=== PATIENT | female | born 1950 | race Two or more races ===

== ENCOUNTER 2017-09-24 10:13 | Observation (INO) | payer MEDICARE, MEDICAID ==
[~2017-09-24] VITALS: Ht 160 cm; Wt 63.6 kg
[2017-09-24] MEDS ORDERED: NITRO PO (10:56)
[2017-09-24 11:03] VITALS: BP 155/93
[2017-09-24] MEDS ORDERED: LOSARTAN PO (11:03)
[2017-09-24] MEDS ORDERED: HYDR-3307 PO (11:03)
[2017-09-24] MEDS ORDERED: TIZA4CAP PO (11:03)
[2017-09-24] MEDS ORDERED: ASPI-496 PO (11:03)
[2017-09-24] MEDS ORDERED: SIMV40TA3 PO (11:03)
[2017-09-24] MEDS ORDERED: PROP20TA PO (11:03)
[2017-09-24] MEDS ORDERED: [UNRECOGNIZED DRUG - MIXTURE] PO (11:03)
[2017-09-24] MEDS ORDERED: AMOX-291 PO (11:14)
[2017-09-24 11:19] LABS: BASOPHILS # (AUTO) 0.03 x10^3/uL (0-0.1); BASOPHILS % (AUTO) 1 % (0-1); EOSINOPHILS # (AUTO) 0.09 x10^3/uL (0-0.4); EOSINOPHILS % (AUTO) 2 % (1-7); LYMPHOCYTES # (AUTO) 1.17 x10^3/uL (1-3.4); LYMPHOCYTES % (AUTO) 19 % (22-44); MD NO; MEAN CORPUSCULAR HEMOGLOBIN 30.4 pg (27.0-34.8); MEAN CORPUSCULAR HGB CONC 33.5 g/dL (32.4-35.8); MEAN CORPUSCULAR VOLUME 90.7 fL (80-100); MEAN PLATELET VOLUME 7.9 fL (7.4-10.4); MONOCYTES # (AUTO) 0.37 x10^3/uL (0.2-0.8); MONOCYTES % (AUTO) 6 % (2-9); NEUTROPHILS # (AUTO) 4.38 x10^3/uL (1.8-6.8); NEUTROPHILS % (AUTO) 73 % (42-75); PLATELET COUNT 197 x10^3/uL (130-400); RED BLOOD COUNT 4.38 x10^6/uL (3.82-5.3); RED CELL DISTRIBUTION WIDTH 14.6 % (9.6-15.2)
[2017-09-24 11:27] LABS: ANION GAP 7 mmol/L (5-15); CALCIUM 9.1 mg/dL (8.5-10.1); CHLORIDE 109 mmol/L (98-107); CREATININE 1.13 mg/dL (0.55-1.02)
[2017-09-24 11:36] LABS: INTERNATIONAL NORMALIZED RATIO 1.01 (0.93-1.1); PROTHROMBIN TIME 10.5 Seconds (9.6-11.5)
[2017-09-24] MEDS ORDERED: VISIPAQUE 270 MG/ML, 150ML BOTTLE ONE ×2 (12:00→13:53)
[2017-09-24] MEDS ORDERED: LIDOCAINE 2%, 20ML ONE (12:37)
[2017-09-24] MEDS ORDERED: MIDAZOLAM 1 MG/ML, 5ML ONE (12:50)
[2017-09-24] MEDS ORDERED: FENTANYL PF 100 MCG/2ML ONE (12:50)
[2017-09-24] MEDS ORDERED: NALOXONE 1 MG/ML, 2ML ONE (12:50)
[2017-09-24] MEDS ORDERED: NITROGLYCERIN 5 MG/ML, 10ML ONE (12:50)
[2017-09-24] MEDS ORDERED: FLUMAZENIL 0.1 MG/1 ML, 5ML ONE (12:50)
[2017-09-24] MEDS ORDERED: HEPARIN 1,000 UNITS/ML, 10ML ONE (12:50)
[2017-09-24] MEDS ORDERED: hydrALAzine 20 MG/ML, 1ML ONE (13:07)
[2017-09-24] MEDS ORDERED: DIPHENHYDRAMINE 50 MG/ML, 1ML ONE (13:47)
[2017-09-24] MEDS ORDERED: CLOPIDOGREL 300 MG TABLET ONE (14:29)
[2017-09-24] MEDS ORDERED: ONDANSETRON 2MG/ML, 2ML IVPush PRN (15:30)
[2017-09-24] MEDS ORDERED: ACETAMINOPHEN 325 MG TABLET PO PRN (15:30)
[2017-09-24] MEDS: HYDROcodone/APAP 5/325 TABLET PO PRN ×3 (16:00→23:58)
[2017-09-24 17:37] VITALS: BP 170/87
[2017-09-24] MEDS: hydrALAzine 20 MG/ML, 1ML IV PRN (17:37)
[2017-09-24 18:07] VITALS: BP 137/73
[2017-09-24] MEDS: PROPRANOLOL 20 MG TABLET PO SCH ×2 (18:25→22:00)
[2017-09-24] MEDS: SODIUM CHLORIDE 0.9% 1,000 ML IV SCH (18:26)
[2017-09-24 19:35] VITALS: BP 155/71
[2017-09-24] MEDS: morphine SULFATE 10 MG/ML, 1ML IVPush PRN (20:39)
[2017-09-24] MEDS ORDERED: ATORVASTATIN 40 MG TABLET PO SCH (21:00)
[2017-09-24] MEDS ORDERED: PROPRANOLOL 20 MG TABLET PO SCH (22:00)
[2017-09-25 00:01] VITALS: BP 161/73
[2017-09-25] MEDS: hydrALAzine 20 MG/ML, 1ML IV PRN (00:04)
[2017-09-25] MEDS: SODIUM CHLORIDE 0.9% 1,000 ML IV SCH (01:30)
[2017-09-25] MEDS: morphine SULFATE 10 MG/ML, 1ML IVPush PRN (01:54)
[2017-09-25] MEDS: HYDROcodone/APAP 5/325 TABLET PO PRN ×2 (04:01→08:56)
[2017-09-25 04:03] VITALS: BP 139/70
[2017-09-25 04:50] LABS: ANION GAP 8 mmol/L (5-15); CHLORIDE 109 mmol/L (98-107); CREATININE 0.86 mg/dL (0.55-1.02)
[2017-09-25 04:53] LABS: BASOPHILS # (AUTO) 0.03 x10^3/uL (0-0.1); BASOPHILS % (AUTO) 0 % (0-1); EOSINOPHILS # (AUTO) 0.07 x10^3/uL (0-0.4); EOSINOPHILS % (AUTO) 1 % (1-7); LYMPHOCYTES # (AUTO) 1.26 x10^3/uL (1-3.4); LYMPHOCYTES % (AUTO) 17 % (22-44); MD NO; MEAN CORPUSCULAR HEMOGLOBIN 30.1 pg (27.0-34.8); MEAN CORPUSCULAR HGB CONC 32.9 g/dL (32.4-35.8); MEAN CORPUSCULAR VOLUME 91.4 fL (80-100); MEAN PLATELET VOLUME 7.9 fL (7.4-10.4); MONOCYTES % (AUTO) 8 % (2-9); NEUTROPHILS % (AUTO) 74 % (42-75); PLATELET COUNT 178 x10^3/uL (130-400); RED BLOOD COUNT 3.95 x10^6/uL (3.82-5.3); RED CELL DISTRIBUTION WIDTH 14.5 % (9.6-15.2)
[2017-09-25] MEDS: PROPRANOLOL 20 MG TABLET PO SCH (05:46)
[2017-09-25] MEDS ORDERED: ASPIRIN 81 MG TABLET EC PO SCH (06:00)
[2017-09-25 07:56] VITALS: BP 173/83
[2017-09-25] MEDS ORDERED: CLOPIDOGREL 75 MG TABLET PO SCH (09:00)
[2017-09-25] MEDS ORDERED: LOSARTAN 50MG TABLET PO SCH (09:00)
[2017-09-25] MEDS ORDERED: CLOP75TA52 PO (09:23)
== END 2017-09-25 09:40 | disposition home or self-care (01) ==
LOC: OUT 10:13 → 4NOR 15:20 → OUT 18:42 → 4NOR 18:42 → DCLOUNGE 09-25 09:27
PROVIDERS: ADMIT Internal Medicine Interventional Cardiology; ATTEND Internal Medicine Interventional Cardiology
DX: I73.9 Peripheral vascular disease, unspecified (principal); B19.20 Unspecified viral hepatitis C without hepatic coma; E78.5 Hyperlipidemia, unspecified; I12.9 Hypertensive chronic kidney disease with stage 1 through stage 4 chronic kidney disease, or unspecified chronic kidney disease; I25.10 Atherosclerotic heart disease of native coronary artery without angina pectoris; I70.203 Unspecified atherosclerosis of native arteries of extremities, bilateral legs; I70.92 Chronic total occlusion of artery of the extremities; J44.9 Chronic obstructive pulmonary disease, unspecified; M19.90 Unspecified osteoarthritis, unspecified site; N18.9 Chronic kidney disease, unspecified; Z72.0 Tobacco use; Z86.718 Personal history of other venous thrombosis and embolism; F41.9 Anxiety disorder, unspecified
CPT/HCPCS: 36415; 37223; 75630; 80048; 85025; 85347; 85610; 96374; 96375; 96376; 99156; 99157; C1714; C1725; C1751; C1760; C1769; C1884; C1894; C2623; G0378; J0360; J1200; J1644; J2250; J2270; J2405; J3010; J3490; J7030; Q9966; J2310

== ENCOUNTER 2017-11-26 04:30 | Inpatient (IN) | payer MEDICARE, MEDICAID ==
[2017-11-25 15:04] LABS: BASOPHILS # (AUTO) 0.09 x10^3/uL (0-0.1); BASOPHILS % (AUTO) 2 % (0-1); EOSINOPHILS # (AUTO) 0.21 x10^3/uL (0-0.4); EOSINOPHILS % (AUTO) 4 % (1-7); LYMPHOCYTES # (AUTO) 1.79 x10^3/uL (1-3.4); LYMPHOCYTES % (AUTO) 30 % (22-44); MD NO; MEAN CORPUSCULAR HEMOGLOBIN 30.3 pg (27.0-34.8); MEAN CORPUSCULAR HGB CONC 33.1 g/dL (32.4-35.8); MEAN CORPUSCULAR VOLUME 91.7 fL (80-100); MEAN PLATELET VOLUME 7.7 fL (7.4-10.4); MONOCYTES # (AUTO) 0.48 x10^3/uL (0.2-0.8); MONOCYTES % (AUTO) 8 % (2-9); NEUTROPHILS # (AUTO) 3.49 x10^3/uL (1.8-6.8); NEUTROPHILS % (AUTO) 58 % (42-75); PLATELET COUNT 263 x10^3/uL (130-400); RED BLOOD COUNT 4.06 x10^6/uL (3.82-5.3); RED CELL DISTRIBUTION WIDTH 14.9 % (9.6-15.2)
[2017-11-25 15:12] LABS: MICROSCOPIC AUTO
[2017-11-25 15:15] LABS: ALBUMIN 4.1 g/dL (3.4-5.0); ANION GAP 5 mmol/L (5-15); CALCIUM 8.5 mg/dL (8.5-10.1); CHLORIDE 108 mmol/L (98-107)
[2017-11-25 15:19] LABS: ALANINE AMINOTRANSFERASE 49 U/L (12-78); ALKALINE PHOSPHATASE 91 U/L (45-117); BILIRUBIN,TOTAL 0.4 mg/dL (0.2-1.0); CREATININE 1.07 mg/dL (0.55-1.02); TOTAL PROTEIN 8.4 g/dL (6.4-8.2)
[2017-11-25 15:49] LABS: INTERNATIONAL NORMALIZED RATIO 0.93 (0.93-1.1); PROTHROMBIN TIME 9.7 Seconds (9.6-11.5)
[2017-11-25 16:11] LABS: HEMOGLOBIN A1C 5.6 % (4.2-6.3)
[~2017-11-26] VITALS: Ht 160 cm; Wt 63.8 kg
[~2017-11-26 04:30] MED LIST: ALBU18HF INH; AMOX-291 PO; ASPI-496 PO; ATOR40TA78 PO; CLOP75TA52 PO; DIPH25CA61 PO; HYDR-3307 PO; LOSA50TA6 PO; LOSARTAN PO; METO-93 PO; NITRO PO; PROP20TA PO; SIMV40TA3 PO; TIZA4CAP PO; TRIA1TAB5 PO; [UNRECOGNIZED DRUG - MIXTURE] PO
[2017-11-26] MEDS ORDERED: CHLORHEXIDINE 15 ML BOTTLE MM SCH (05:00)
[2017-11-26] MEDS ORDERED: ALBUMIN HUMAN 5% 500 ML IV PRN (05:00)
[2017-11-26] MEDS ORDERED: METOPROLOL TARTRATE 25 MG TABLET PO ONE (05:00)
[2017-11-26] MEDS ORDERED: INSULIN LISPRO 100 UNITS/ML, PEN SQ-INSULIN SCH (05:00)
[2017-11-26 05:59] VITALS: BP_SYST 109; BP_SYST 90; BP_DIAS 58; BP_DIAS 66
[2017-11-26] MEDS ORDERED: PAPAVERINE 30 MG/ML, 2ML ONE (06:30)
[2017-11-26] MEDS ORDERED: HEPARIN 1,000 UNITS/ML, 10ML ONE (06:30)
[2017-11-26] MEDS ORDERED: MIDAZOLAM 10MG/2 ML ONE (06:44)
[2017-11-26] MEDS ORDERED: POTASSIUM CHLORIDE 80 MEQ, SODIUM BICARBONATE 8.4% 10 MEQ, MAGNESIUM SULFATE 0.5 GM, LI... IV PRN (07:30)
[2017-11-26] MEDS ORDERED: VANCOMYCIN PMX 1GM/200ML 200 ML IV PRN (07:30)
[2017-11-26] MEDS ORDERED: CEFUROXIME 1.5 GM in SODIUM CHLORIDE 0.9% 50 ML IVPB PRN (07:30)
[2017-11-26] MEDS ORDERED: REGULAR INSULIN 62.5 UNITS in SODIUM CHLORIDE 0.9% 249.375 ML IV PRN ×2 (07:30→10:38)
[2017-11-26] MEDS ORDERED: DEXMEDETOMIDINE 200 MCG in SODIUM CHLORIDE 0.9% 48 ML IV SCH (07:30)
[2017-11-26] MEDS ORDERED: MANNITOL PMX 20% 500 ML IVPB PRN (07:30)
[2017-11-26] MEDS ORDERED: EPINEPHRINE 2 MG in SODIUM CHLORIDE 0.9% 248 ML IV SCH (07:30)
[2017-11-26] MEDS ORDERED: PHENYLEPHRINE 10 MG in SODIUM CHLORIDE 0.9% 249 ML IV PRN ×2 (07:30→10:38)
[2017-11-26] MEDS: SODIUM CHLORIDE FLUSH 10ML SYR IVF SCH ×3 (09:00→21:23)
[2017-11-26] MEDS ORDERED: MUPIROCIN OINT 2%, 22GM TP SCH (09:00)
[2017-11-26] MEDS ORDERED: PROTAMINE SULFATE 10 MG/ML, 25ML ONE (09:34)
[2017-11-26] MEDS ORDERED: PROPOFOL 10 MG/ML, 20ML ONE (09:34)
[2017-11-26] MEDS ORDERED: PHENYLEPHRINE 10 MG/ML ONE (09:34)
[2017-11-26] MEDS ORDERED: AMINOCAPROIC ACID 250 MG/ML, 20ML ONE ×2 (09:34)
[2017-11-26] MEDS ORDERED: EPINEPHRINE 1 MG/ML, 1ML ONE (09:34)
[2017-11-26] MEDS ORDERED: SUFentanil 50 MCG/ML, 5ML ONE (09:34)
[2017-11-26] MEDS ORDERED: ROCURONIUM 10 MG/ML,10ML ONE (09:34)
[2017-11-26] MEDS ORDERED: DEXMEDETOMIDINE 200 MCG in SODIUM CHLORIDE 0.9% 48 ML IV PRN (10:38)
[2017-11-26] MEDS ORDERED: NITROGLYCERIN/D5W PMX 240 ML IV PRN (10:38)
[2017-11-26] MEDS ORDERED: LIDOCAINE 2% 100MG/5ML SYRINGE ONE (10:59)
[2017-11-26] MEDS ORDERED: HEPARIN 1,000 UNITS/ML, 30ML ONE (10:59)
[2017-11-26] MEDS ORDERED: SODIUM BICARB 8.4%, 50ML SYRINGE ONE (10:59)
[2017-11-26] MEDS ORDERED: ALBUMIN HUMAN 25% 50 ML ONE (10:59)
[2017-11-26] MEDS ORDERED: DEXTROSE 4 GM TAB.CHEW PO PRN (11:00)
[2017-11-26] MEDS ORDERED: ACETAMINOPHEN 325 MG TABLET PO PRN (11:00)
[2017-11-26] MEDS ORDERED: BISACODYL 5 MG EC TABLET PO PRN (11:00)
[2017-11-26] MEDS ORDERED: SODIUM BICARB 8.4%, 50ML SYRINGE IV PRN (11:00)
[2017-11-26] MEDS ORDERED: DEXTROSE 50%, 50ML SYRINGE IVPush PRN (11:00)
[2017-11-26] MEDS ORDERED: MIDAZOLAM 1 MG/ML, 5ML IVPush PRN (11:00)
[2017-11-26] MEDS ORDERED: ACETAMINOPHEN 650 MG SUPP PR PRN (11:00)
[2017-11-26] MEDS ORDERED: GLUCAGON 1 MG IM PRN (11:00)
[2017-11-26] MEDS ORDERED: HYDROcodone/APAP 5/325 TABLET PO PRN (11:00)
[2017-11-26] MEDS ORDERED: PROCHLORPERAZINE 5 MG/ML, 2ML IVPush PRN (11:00)
[2017-11-26] MEDS ORDERED: BISACODYL 10 MG SUPP PR PRN (11:00)
[2017-11-26] MEDS: KSCALE TO 4.5 IV SCH ×3 (11:00→23:00)
[2017-11-26] MEDS ORDERED: ONDANSETRON 2MG/ML, 2ML IVPush PRN (11:00)
[2017-11-26] MEDS ORDERED: INSULIN REGULAR 100 UNITS/ML, 3ML VIAL IVPush PRN (11:00)
[2017-11-26] MEDS ORDERED: EPINEPHRINE 2 MG in SODIUM CHLORIDE 0.9% 248 ML IV PRN (11:00)
[2017-11-26] MEDS ORDERED: LACTATED RINGERS 1,000 ML IV PRN (11:00)
[2017-11-26 11:13] LABS: GLUCOSE BY BLOOD GAS ANALYZER 115 mg/dL (70-110); HEMOGLOBIN BY BLOOD GAS ANALYZ 9.5 g/dL (14.0-18.0); POTASSIUM BY BLOOD GAS ANALYZR 4.1 mmol/L (3.6-5.5)
[2017-11-26] MEDS: INSULIN LISPRO 100 UNITS/ML, PEN SQ-INSULIN SCH ×3 (11:30→21:00)
[2017-11-26] MEDS: CHLORHEXIDINE 15 ML BOTTLE MM SCH ×2 (11:47→21:25)
[2017-11-26] MEDS: MAGNESIUM SULFATE 1 GM in SODIUM CHLORIDE 0.9% 50 ML IVPB SCH (11:47)
[2017-11-26] MEDS: DOCUSATE 100 MG CAPSULE PO SCH ×2 (11:48→21:00)
[2017-11-26] MEDS ORDERED: SODIUM CHLORIDE 0.9% 1,000 ML IV PRN (12:00)
[2017-11-26] MEDS ORDERED: morphine SULFATE 10 MG/ML, 1ML ONE (14:04)
[2017-11-26] MEDS: MORPHINE SULFATE 4 MG/ML, 1ML IVPush PRN (14:05)
[2017-11-26] MEDS: HYDROcodone/APAP 10/325 MG TABLET PO PRN (17:39)
[2017-11-26] MEDS ORDERED: DIAZEPAM 10 MG TABLET PO PRN (18:00)
[2017-11-26] MEDS ORDERED: DIAZEPAM 5 MG/ML, 2ML IV PRN (18:00)
[2017-11-26] MEDS: MUPIROCIN OINT 2%, 22GM NAS SCH (21:00)
[2017-11-26] MEDS: CEFUROXIME 1.5 GM in SODIUM CHLORIDE 0.9% 50 ML IVPB SCH (21:22)
[2017-11-26] MEDS: OXYcodone IR 5MG TABLET PO PRN ×2 (21:38→22:59)
[2017-11-26] MEDS ORDERED: DIAZEPAM 5 MG TABLET ONE (22:57)
[2017-11-27] MEDS: MORPHINE SULFATE 4 MG/ML, 1ML IVPush PRN ×3 (00:44→04:23)
[2017-11-27] MEDS: OXYcodone IR 5MG TABLET PO PRN ×3 (02:06→18:38)
[2017-11-27] MEDS: INSULIN LISPRO 100 UNITS/ML, PEN SQ-INSULIN SCH ×5 (03:00→20:00)
[2017-11-27] MEDS: KSCALE TO 4.5 IV SCH (05:00)
[2017-11-27 06:35] LABS: INTERNATIONAL NORMALIZED RATIO 1.05 (0.93-1.1); PROTHROMBIN TIME 10.9 Seconds (9.6-11.5)
[2017-11-27 06:37] LABS: BASOPHILS # (AUTO) 0.05 x10^3/uL (0-0.1); BASOPHILS % (AUTO) 1 % (0-1); EOSINOPHILS % (AUTO) 0 % (1-7); LYMPHOCYTES # (AUTO) 0.96 x10^3/uL (1-3.4); LYMPHOCYTES % (AUTO) 12 % (22-44); MEAN CORPUSCULAR HEMOGLOBIN 30.4 pg (27.0-34.8); MEAN CORPUSCULAR HGB CONC 33.1 g/dL (32.4-35.8); MEAN CORPUSCULAR VOLUME 91.6 fL (80-100); MEAN PLATELET VOLUME 8.5 fL (7.4-10.4); MONOCYTES # (AUTO) 0.69 x10^3/uL (0.2-0.8); MONOCYTES % (AUTO) 9 % (2-9); NEUTROPHILS # (AUTO) 6.08 x10^3/uL (1.8-6.8); NEUTROPHILS % (AUTO) 78 % (42-75); PLATELET COUNT 168 x10^3/uL (130-400); RED BLOOD COUNT 3.19 x10^6/uL (3.82-5.3); RED CELL DISTRIBUTION WIDTH 14.1 % (9.6-15.2)
[2017-11-27 06:38] LABS: ALBUMIN 2.8 g/dL (3.4-5.0); ANION GAP 6 mmol/L (5-15); CALCIUM 7.7 mg/dL (8.5-10.1); CHLORIDE 112 mmol/L (98-107); CREATININE 0.58 mg/dL (0.55-1.02); MD NO
[2017-11-27] MEDS: CEFUROXIME 1.5 GM in SODIUM CHLORIDE 0.9% 50 ML IVPB SCH (07:52)
[2017-11-27] MEDS: CHLORHEXIDINE 15 ML BOTTLE MM SCH ×2 (07:52→19:57)
[2017-11-27] MEDS: MUPIROCIN OINT 2%, 22GM NAS SCH ×2 (07:53→19:57)
[2017-11-27] MEDS: METOPROLOL TARTRATE 25 MG TABLET PO/NG SCH ×2 (07:56→20:00)
[2017-11-27] MEDS: ASPIRIN 81 MG TABLET EC PO SCH (07:56)
[2017-11-27] MEDS: DOCUSATE 100 MG CAPSULE PO SCH ×2 (07:56→19:57)
[2017-11-27] MEDS ORDERED: Albuterol Sulfate (Ventolin Hfa) INH PRN (08:30)
[2017-11-27] MEDS ORDERED: FUROSEMIDE 20 MG/2 ML ONE (08:55)
[2017-11-27] MEDS: LOSARTAN 25MG TABLET PO SCH (09:00)
[2017-11-27] MEDS ORDERED: MAGNESIUM HYDROXIDE 8%, 30ML UDC PO PRN (09:00)
[2017-11-27] MEDS: SODIUM CHLORIDE FLUSH 10ML SYR IVF SCH ×3 (09:01→19:56)
[2017-11-27] MEDS ORDERED: FUROSEMIDE 20 MG/2 ML IV ONE (10:00)
[2017-11-27] MEDS ORDERED: TIZANIDINE 4MG TABLET PO PRN (11:00)
[2017-11-27] MEDS ORDERED: TIZANIDINE HCL 4 MG PO SCH (11:00)
[2017-11-27] MEDS: MAGNESIUM SULFATE 1 GM in SODIUM CHLORIDE 0.9% 50 ML IVPB SCH (12:00)
[2017-11-27] MEDS ORDERED: EPINEPHRINE 1 MG in SODIUM CHLORIDE 0.9% 249 ML IV PRN (14:00)
[2017-11-27] MEDS: ATORVASTATIN 40 MG TABLET PO SCH (20:00)
[2017-11-28] MEDS: OXYcodone IR 5MG TABLET PO PRN ×6 (00:18→23:08)
[2017-11-28 05:45] LABS: MEAN CORPUSCULAR HEMOGLOBIN 30.2 pg (27.0-34.8); MEAN CORPUSCULAR HGB CONC 33.2 g/dL (32.4-35.8); MEAN PLATELET VOLUME 8.2 fL (7.4-10.4); PLATELET COUNT 150 x10^3/uL (130-400); RED BLOOD COUNT 3.09 x10^6/uL (3.82-5.3); RED CELL DISTRIBUTION WIDTH 14.5 % (9.6-15.2)
[2017-11-28 05:55] LABS: CHLORIDE 108 mmol/L (98-107)
[2017-11-28 05:56] LABS: INTERNATIONAL NORMALIZED RATIO 0.99 (0.93-1.1); PROTHROMBIN TIME 10.3 Seconds (9.6-11.5)
[2017-11-28 06:06] LABS: ANION GAP 7 mmol/L (5-15); CALCIUM 8.5 mg/dL (8.5-10.1); CREATININE 0.63 mg/dL (0.55-1.02)
[2017-11-28 06:44] LABS: BASOPHILS # (AUTO) 0.05 x10^3/uL (0-0.1); BASOPHILS % (AUTO) 1 % (0-1); EOSINOPHILS # (AUTO) 0.01 x10^3/uL (0-0.4); EOSINOPHILS % (AUTO) 0 % (1-7); LYMPHOCYTES # (AUTO) 1.15 x10^3/uL (1-3.4); LYMPHOCYTES % (AUTO) 13 % (22-44); MD SCAN; MONOCYTES # (AUTO) 0.81 x10^3/uL (0.2-0.8); MONOCYTES % (AUTO) 9 % (2-9); NEUTROPHILS # (AUTO) 7.12 x10^3/uL (1.8-6.8); NEUTROPHILS % (AUTO) 78 % (42-75)
[2017-11-28] MEDS: INSULIN LISPRO 100 UNITS/ML, PEN SQ-INSULIN SCH ×4 (07:00→21:00)
[2017-11-28] MEDS: SODIUM CHLORIDE FLUSH 10ML SYR IVF SCH ×4 (08:17→23:03)
[2017-11-28] MEDS: DOCUSATE 100 MG CAPSULE PO SCH ×2 (08:17→23:01)
[2017-11-28] MEDS: MUPIROCIN OINT 2%, 22GM NAS SCH ×2 (08:17→23:36)
[2017-11-28] MEDS: ENOXAPARIN 40 MG/0.4 ML SQ SCH (08:18)
[2017-11-28] MEDS: ASPIRIN 81 MG TABLET EC PO SCH (08:18)
[2017-11-28] MEDS: METOPROLOL TARTRATE 25 MG TABLET PO/NG SCH ×2 (08:19→23:02)
[2017-11-28] MEDS ORDERED: FUROSEMIDE 20 MG/2 ML IV SCH (09:00)
[2017-11-28] MEDS ORDERED: POTASSIUM CHLORIDE 10 MEQ TABLET.ER PO SCH (09:00)
[2017-11-28] MEDS ORDERED: FUROSEMIDE 20 MG TABLET PO SCH (09:00)
[2017-11-28] MEDS: LOSARTAN 25MG TABLET PO SCH (11:11)
[2017-11-28] MEDS: MAGNESIUM SULFATE 1 GM in SODIUM CHLORIDE 0.9% 50 ML IVPB SCH (11:59)
[2017-11-28 13:00] VITALS: BP 123/73
[2017-11-28 18:24] VITALS: BP 142/78
[2017-11-28] MEDS: ATORVASTATIN 40 MG TABLET PO SCH (23:01)
[2017-11-29 01:27] VITALS: BP 145/79
[2017-11-29] MEDS: OXYcodone IR 5MG TABLET PO PRN ×4 (04:48→22:26)
[2017-11-29 06:00] LABS: CHLORIDE 104 mmol/L (98-107)
[2017-11-29 06:10] LABS: ANION GAP 8 mmol/L (5-15); CALCIUM 7.9 mg/dL (8.5-10.1)
[2017-11-29] MEDS: INSULIN LISPRO 100 UNITS/ML, PEN SQ-INSULIN SCH ×4 (07:00→21:00)
[2017-11-29 08:00] VITALS: BP 144/85
[2017-11-29] MEDS: SODIUM CHLORIDE FLUSH 10ML SYR IVF SCH ×4 (09:00→22:30)
[2017-11-29] MEDS: DOCUSATE 100 MG CAPSULE PO SCH ×2 (09:00→22:29)
[2017-11-29] MEDS: MUPIROCIN OINT 2%, 22GM NAS SCH ×2 (09:37→22:30)
[2017-11-29] MEDS: LOSARTAN 25MG TABLET PO SCH (09:38)
[2017-11-29] MEDS: CLOPIDOGREL 75 MG TABLET PO SCH (09:39)
[2017-11-29] MEDS: ASPIRIN 81 MG TABLET EC PO SCH (09:39)
[2017-11-29] MEDS: POTASSIUM CHLORIDE 10 MEQ TABLET.ER PO SCH ×2 (09:39→22:26)
[2017-11-29] MEDS: METOPROLOL TARTRATE 25 MG TABLET PO/NG SCH ×2 (09:54→22:25)
[2017-11-29 12:15] VITALS: BP 128/78
[2017-11-29] MEDS: ENOXAPARIN 40 MG/0.4 ML SQ SCH (12:57)
[2017-11-29] MEDS: FUROSEMIDE 40 MG/4 ML IV SCH (17:29)
[2017-11-29 18:54] VITALS: BP 130/73
[2017-11-29] MEDS: ATORVASTATIN 40 MG TABLET PO SCH (22:25)
[2017-11-30 00:45] VITALS: BP 120/73
[2017-11-30] MEDS: OXYcodone IR 5MG TABLET PO PRN ×2 (04:29→11:59)
[2017-11-30 05:24] LABS: CHLORIDE 103 mmol/L (98-107)
[2017-11-30 05:29] LABS: ANION GAP 7 mmol/L (5-15); CALCIUM 8.1 mg/dL (8.5-10.1)
[2017-11-30 07:58] VITALS: BP 147/94
[2017-11-30] MEDS: FUROSEMIDE 40 MG/4 ML IV SCH ×2 (08:49→17:29)
[2017-11-30] MEDS: ENOXAPARIN 40 MG/0.4 ML SQ SCH (08:50)
[2017-11-30] MEDS: CLOPIDOGREL 75 MG TABLET PO SCH (08:50)
[2017-11-30] MEDS: MUPIROCIN OINT 2%, 22GM NAS SCH ×2 (08:50→21:31)
[2017-11-30] MEDS: SODIUM CHLORIDE FLUSH 10ML SYR IVF SCH ×2 (08:50→21:28)
[2017-11-30] MEDS: HYDROcodone/APAP 10/325 MG TABLET PO PRN ×4 (08:51→21:30)
[2017-11-30] MEDS: POTASSIUM CHLORIDE 10 MEQ TABLET.ER PO SCH ×2 (08:51→21:31)
[2017-11-30] MEDS: METOPROLOL TARTRATE 25 MG TABLET PO/NG SCH ×2 (08:51→21:30)
[2017-11-30] MEDS: ASPIRIN 81 MG TABLET EC PO SCH (08:51)
[2017-11-30] MEDS: DOCUSATE 100 MG CAPSULE PO SCH ×2 (08:52→21:00)
[2017-11-30] MEDS: LOSARTAN 25MG TABLET PO SCH (08:52)
[2017-11-30 12:23] VITALS: BP 117/72
[2017-11-30 19:17] VITALS: BP 100/70
[2017-11-30] MEDS: ATORVASTATIN 40 MG TABLET PO SCH (21:28)
[2017-12-01 01:34] VITALS: BP 159/79
[2017-12-01] MEDS: HYDROcodone/APAP 10/325 MG TABLET PO PRN ×2 (01:39→08:26)
[2017-12-01 05:21] LABS: ANION GAP 8 mmol/L (5-15); CALCIUM 8.3 mg/dL (8.5-10.1); CHLORIDE 103 mmol/L (98-107)
[2017-12-01 05:23] LABS: CREATININE 0.94 mg/dL (0.55-1.02)
[2017-12-01] MEDS: FUROSEMIDE 40 MG/4 ML IV SCH (07:30)
[2017-12-01 07:44] VITALS: BP 119/66
[2017-12-01] MEDS ORDERED: DOCU-131 PO (07:55)
[2017-12-01] MEDS ORDERED: POTA10TA5 PO (07:55)
[2017-12-01] MEDS ORDERED: ASPI-621 PO (07:55)
[2017-12-01] MEDS ORDERED: FURO40TA6 PO (07:55)
[2017-12-01] MEDS: ASPIRIN 81 MG TABLET EC PO SCH (08:26)
[2017-12-01] MEDS: MUPIROCIN OINT 2%, 22GM NAS SCH (08:26)
[2017-12-01] MEDS: METOPROLOL TARTRATE 25 MG TABLET PO/NG SCH (08:26)
[2017-12-01] MEDS: CLOPIDOGREL 75 MG TABLET PO SCH (08:26)
[2017-12-01] MEDS: LOSARTAN 25MG TABLET PO SCH (08:26)
[2017-12-01] MEDS: SODIUM CHLORIDE FLUSH 10ML SYR IVF SCH (08:26)
[2017-12-01] MEDS: POTASSIUM CHLORIDE 10 MEQ TABLET.ER PO SCH (08:26)
[2017-12-01] MEDS: DOCUSATE 100 MG CAPSULE PO SCH (08:27)
[2017-12-01] MEDS: ENOXAPARIN 40 MG/0.4 ML SQ SCH (08:27)
[2017-12-01] MEDS ORDERED: OXYC5CAP2 PO (12:06)
== END 2017-12-01 12:20 | disposition home health service (06) | DRG 235 ==
LOC: 5SO 04:30 → CSU 09:17 → 5SO 11-28 12:54 → DCLOUNGE 12-01 12:08
PROVIDERS: ADMIT Thoracic Surgery (Cardiothoracic Vascular Surgery); ATTEND Thoracic Surgery (Cardiothoracic Vascular Surgery)
PROC: 021109W Bypass Coronary Artery, Two Arteries from Aorta with Autologous Venous Tissue, Open Approach (ICD-10-PCS; 2017-11-26)
PROC: 5A1221Z Performance of Cardiac Output, Continuous (ICD-10-PCS; 2017-11-26)
PROC: 06BQ4ZZ Excision of Left Saphenous Vein, Percutaneous Endoscopic Approach (ICD-10-PCS; 2017-11-26)
PROC: 02100Z9 Bypass Coronary Artery, One Artery from Left Internal Mammary, Open Approach (ICD-10-PCS; principal; 2017-11-26 07:30)
PROC: 0W9B3ZZ Drainage of Left Pleural Cavity, Percutaneous Approach (ICD-10-PCS; 2017-11-29)
DX: I25.10 Atherosclerotic heart disease of native coronary artery without angina pectoris (principal); J96.00 Acute respiratory failure, unspecified whether with hypoxia or hypercapnia; J98.11 Atelectasis; J44.9 Chronic obstructive pulmonary disease, unspecified; I10 Essential (primary) hypertension; F43.10 Post-traumatic stress disorder, unspecified; I73.9 Peripheral vascular disease, unspecified; B19.20 Unspecified viral hepatitis C without hepatic coma; G89.4 Chronic pain syndrome; Z86.73 Personal history of transient ischemic attack (TIA), and cerebral infarction without residual deficits; Z86.718 Personal history of other venous thrombosis and embolism; Z87.891 Personal history of nicotine dependence; Z90.710 Acquired absence of both cervix and uterus
CPT/HCPCS: 32555; 36415; 36600; 71045; 71046; 80048; 80053; 81001; 82040; 82330; 82800; 82803; 82810; 82947; 82962; 83036; 83735; 84132; 84295; 85014; 85018; 85025; 85049; 85347; 85610; 85730; 86850; 86900; 86923; 87081; 93005; 93312; 93321; 93325; 93880; 94002; J0171; J0697; J1644; J1650; J1815; J1940; J2250; J2704; J2720; J3360; J3370; J3475; J3480; J3490; P9045; P9047; C1751; C1760; J2370; J2440; J7050; J7120

== ENCOUNTER 2018-07-13 05:46 | Inpatient (IN) | payer MEDICARE, MEDICAID ==
[2018-07-10 13:06] LABS: ALANINE AMINOTRANSFERASE 25 U/L (12-78); ALBUMIN 3.7 g/dL (3.4-5.0); ANION GAP 7 mmol/L (5-15); CALCIUM 9.2 mg/dL (8.5-10.1); CHLORIDE 110 mmol/L (98-107)
[2018-07-10 13:08] LABS: ALKALINE PHOSPHATASE 65 U/L (45-117); BILIRUBIN,TOTAL 0.3 mg/dL (0.2-1.0); TOTAL PROTEIN 8.1 g/dL (6.4-8.2)
[2018-07-10 19:38] LABS: BASOPHILS # (AUTO) 0.01 x10^3/uL (0-0.1); BASOPHILS % (AUTO) 0 % (0-1); EOSINOPHILS # (AUTO) 0.09 x10^3/uL (0-0.4); EOSINOPHILS % (AUTO) 1 % (1-7); LYMPHOCYTES # (AUTO) 1.45 x10^3/uL (1-3.4); LYMPHOCYTES % (AUTO) 16 % (22-44); MD NO; MEAN CORPUSCULAR HEMOGLOBIN 31.1 pg (27.0-34.8); MEAN CORPUSCULAR HGB CONC 33.2 g/dL (32.4-35.8); MEAN CORPUSCULAR VOLUME 93.6 fL (80-100); MEAN PLATELET VOLUME 7.4 fL (7.4-10.4); MONOCYTES # (AUTO) 0.41 x10^3/uL (0.2-0.8); MONOCYTES % (AUTO) 5 % (2-9); NEUTROPHILS # (AUTO) 7.16 x10^3/uL (1.8-6.8); NEUTROPHILS % (AUTO) 79 % (42-75); PLATELET COUNT 319 x10^3/uL (130-400); RED BLOOD COUNT 3.98 x10^6/uL (3.82-5.3); RED CELL DISTRIBUTION WIDTH 13.9 % (9.6-15.2)
[~2018-07-13] VITALS: Ht 160 cm; Wt 60.9 kg
[~2018-07-13 05:46] MED LIST changes: +ASPI-621 PO; +DOCU-131 PO; +FURO40TA6 PO; -LOSA50TA6 PO; +LOSA50TA7 PO; +OXYC5CAP2 PO; +POTA10TA5 PO
[2018-07-13 06:00] VITALS: BP_SYST 145; BP_SYST 192; BP_DIAS 106; BP_DIAS 93
[2018-07-13] MEDS ORDERED: CHLORHEXIDINE 15 ML UDC MM SCH (06:00)
[2018-07-13] MEDS ORDERED: INSULIN LISPRO 100 UNITS/ML, PEN SQ-INSULIN SCH (06:00)
[2018-07-13] MEDS ORDERED: FENTANYL PF 250 MCG/5ML ONE (07:04)
[2018-07-13] MEDS ORDERED: SUCCINYLCHOLINE 20 MG/ML, 10ML ONE (07:05)
[2018-07-13] MEDS ORDERED: DEXAMETHASONE 4 MG/ML, 1ML ONE ×2 (07:05→07:24)
[2018-07-13] MEDS ORDERED: ONDANSETRON 2MG/ML, 2ML ONE ×2 (07:05→07:24)
[2018-07-13] MEDS ORDERED: PROPOFOL 10 MG/ML, 20ML ONE (07:05)
[2018-07-13] MEDS ORDERED: EPHEDRINE 50 MG/ML, 1ML ONE (07:05)
[2018-07-13] MEDS ORDERED: PHENYLEPHRINE 10 MG/ML ONE (07:16)
[2018-07-13] MEDS ORDERED: REGULAR INSULIN 62.5 UNITS in SODIUM CHLORIDE 0.9% 249.375 ML IV PRN (07:30)
[2018-07-13] MEDS ORDERED: CEFUROXIME 1.5 GM in SODIUM CHLORIDE 0.9% 50 ML IVPB PRN (07:30)
[2018-07-13] MEDS ORDERED: MANNITOL PMX 20% 500 ML IVPB PRN (07:30)
[2018-07-13] MEDS ORDERED: DEXMEDETOMIDINE 200 MCG in SODIUM CHLORIDE 0.9% 48 ML IV SCH (07:30)
[2018-07-13] MEDS ORDERED: POTASSIUM CHLORIDE 80 MEQ, SODIUM BICARBONATE 8.4% 10 MEQ, MAGNESIUM SULFATE 0.5 GM, LI... IV PRN (07:30)
[2018-07-13] MEDS ORDERED: EPINEPHRINE 2 MG in SODIUM CHLORIDE 0.9% 248 ML IV SCH (07:30)
[2018-07-13] MEDS ORDERED: VANCOMYCIN 900 MG in SODIUM CHLORIDE 0.9% 250 ML IV PRN (07:30)
[2018-07-13] MEDS ORDERED: ALBUMIN HUMAN 5% 500 ML IV PRN (07:30)
[2018-07-13] MEDS ORDERED: PHENYLEPHRINE 10 MG in SODIUM CHLORIDE 0.9% 249 ML IV PRN (07:30)
[2018-07-13] MEDS ORDERED: EPHEDRINE 50 MG/ML, 1ML IVPush PRN (08:00)
[2018-07-13] MEDS ORDERED: OXYcodone 5 MG/5 ML ORAL.SOL UDC PO PRN (08:00)
[2018-07-13] MEDS ORDERED: ALBUTEROL SULFATE 2.5 MG/3 ML NPPB PRN (08:00)
[2018-07-13] MEDS ORDERED: MORPHINE SULFATE 4 MG/ML, 1ML IVPush PRN (08:00)
[2018-07-13] MEDS ORDERED: LORazepam 2 MG/ML, 1ML IVPush PRN (08:00)
[2018-07-13] MEDS ORDERED: HALOPERIDOL 5 MG/ML IV PRN (08:00)
[2018-07-13] MEDS ORDERED: PROMETHAZINE 25 MG/ML, 1ML IV PRN (08:00)
[2018-07-13] MEDS ORDERED: HYDROmorphone 1 MG/ML, 1ML IV PRN (08:00)
[2018-07-13] MEDS ORDERED: MIDAZOLAM 1 MG/ML, 2ML IV PRN (08:00)
[2018-07-13] MEDS ORDERED: PROMETHAZINE 12.5 MG SUPP PR PRN (08:00)
[2018-07-13] MEDS ORDERED: hydrALAzine 20 MG/ML, 1ML IV PRN (08:00)
[2018-07-13] MEDS ORDERED: LABETALOL 5MG/ML, 20ML IV PRN (08:00)
[2018-07-13] MEDS ORDERED: MEPERIDINE/PF 25MG/0.5ML IVPush PRN (08:00)
[2018-07-13] MEDS ORDERED: ACETAMINOPHEN 325 MG TABLET PO PRN (08:00)
[2018-07-13] MEDS ORDERED: ONDANSETRON 2MG/ML, 2ML IV PRN (08:00)
[2018-07-13] MEDS ORDERED: ONDANSETRON ODT 8 MG PO PRN (08:00)
[2018-07-13] MEDS ORDERED: OXYcodone 5 MG/5 ML ORAL.SOL UDC ONE (08:01)
[2018-07-13] MEDS ORDERED: FENTANYL PF 100 MCG/2ML ONE (08:01)
[2018-07-13] MEDS: FENTANYL PF 100 MCG/2ML IV PRN ×2 (08:03→08:15)
[2018-07-13] MEDS ORDERED: SODIUM CHLORIDE FLUSH 10ML SYR IVF SCH (09:00)
[2018-07-13] MEDS ORDERED: MUPIROCIN OINT 2%, 22GM TP SCH (09:00)
[2018-07-13] MEDS ORDERED: HYDR-3237 PO (10:46)
== END 2018-07-13 12:05 | disposition home or self-care (01) | DRG 909 ==
LOC: 5SO 05:46 → CCU 07:58 → 5SO 08:15
PROVIDERS: ADMIT Thoracic Surgery (Cardiothoracic Vascular Surgery); ATTEND Thoracic Surgery (Cardiothoracic Vascular Surgery)
PROC: 0PC00ZZ Extirpation of Matter from Sternum, Open Approach (ICD-10-PCS; principal; 2018-07-13 07:30)
DX: T85.848A Pain due to other internal prosthetic devices, implants and grafts, initial encounter (principal); Y83.8 Other surgical procedures as the cause of abnormal reaction of the patient, or of later complication, without mention of misadventure at the time of the procedure; I25.10 Atherosclerotic heart disease of native coronary artery without angina pectoris; J44.9 Chronic obstructive pulmonary disease, unspecified; I10 Essential (primary) hypertension; Y92.89 Other specified places as the place of occurrence of the external cause; Z86.73 Personal history of transient ischemic attack (TIA), and cerebral infarction without residual deficits; Z95.1 Presence of aortocoronary bypass graft; Z88.5 Allergy status to narcotic agent; Z88.8 Allergy status to other drugs, medicaments and biological substances; Z86.718 Personal history of other venous thrombosis and embolism; Z79.01 Long term (current) use of anticoagulants; Z90.710 Acquired absence of both cervix and uterus; Z98.51 Tubal ligation status
CPT/HCPCS: 36415; 71045; 80053; 82962; 85025; 93005; G0378; J0697; J1100; J1815; J2405; J2704; J3010; J3370; J3475; J3480; J3490; P9045; J0171; J0330; J2370; J7050